=== PATIENT | female | born 2000 | race Caucasian/White ===

== ENCOUNTER 2019-07-03 02:24 | Inpatient (IN) ==
[2019-07-03] MEDS ORDERED: RINGER'S SOLUTION,LACTATED 1,000 ML IV ONE (02:56)
[2019-07-03] MEDS ORDERED: RINGER'S SOLUTION,LACTATED 1,000 ML IV PRN (02:56)
[2019-07-03] MEDS ORDERED: LIDOCAINE HCL 50 ML VIAL PERI PRN (02:56)
[2019-07-03] MEDS ORDERED: OXYTOCIN/DEXTROSE 5%-WATER 30 UNITS/500 ML BAG IV ONE ×2 (02:56→08:53)
[2019-07-03] MEDS ORDERED: PENICILLIN G POTASSIUM 5 MILLIONUNT in DEXTROSE 5 % IN WATER 100 ML IV ONE ×2 (02:56)
[2019-07-03] MEDS ORDERED: ONDANSETRON 4 MG TAB.RAPDIS PO PRN (02:56)
[2019-07-03] MEDS ORDERED: NALOXONE HCL 1 MG/1 ML SYRG IV PRN (02:59)
[2019-07-03] MEDS ORDERED: BUPIVACAINE HCL/0.9 % NACL/PF 250 ML EP PRN (02:59)
[2019-07-03] MEDS ORDERED: ONDANSETRON HCL/PF 2 MG/ML VIAL IV PRN (02:59)
[2019-07-03] MEDS ORDERED: fentaNYL CITRATE/PF 50 MCG/ML AMPUL IT SCH (03:00)
[2019-07-03 03:31] LABS: Cocaine Ur Negative (NEGATIVE); Urine Barbiturate Negative (NEGATIVE); Urine Benzodiazepines Negative (NEGATIVE); Urine Opiates Negative (NEGATIVE); Urine PCP Negative (NEGATIVE); Urine THC Positive (NEGATIVE)
--- NOTE | 2019-07-03 04:10 | ANES ---
Post Anesthesia Discharge - Transfer of Care Transfer of Care handoff given to nurse: Yes - Anesthesia Post Op Note Anesthesia Post Op Note: care transferred to OB RN
--- NOTE | 2019-07-03 04:10 | ANES ---
Anesthesia Pre Procedure Eval Vitals/Labs: Last Vital Signs Temp 37.0 C 07/03/19 02:56 Pulse 63 07/03/19 02:56 Resp 18 07/03/19 02:56 BP 131/77 07/03/19 02:56 Pulse Ox 98 07/03/19 02:56 HOME MEDICATIONS prenat.vits,jose,jie-[id number] 1 tab PO DAILY 04/29/19 [Last Taken Unknown] ferrous sulfate 325 mg (65 mg iron) tablet 325 mg PO BID #60 tab 05/11/19 [Last Taken Unknown] Allergies/Adverse Reactions: Allergies Allergy/AdvReac Type Severity Reaction Status Date / Time No Known Allergies Allergy Verified 07/03/19 03:00 - Planned Procedure Planned Procedure: labor Medical History (Last Reviewed 07/03/19 @ 04:09 by Misha Jones CRNA) Anemia Onset Date: 05/11/19 w/ Body piercing Onset Date: Unknown Scoliosis Onset Date: Unknown Tattoos Onset Date: Unknown Wears glasses Onset Date: Unknown Mononucleosis Onset Date: ~2013 Surgical History (Last Reviewed 07/03/19 @ 04:09 by Misha Jones CRNA) [place] teeth extracted Onset Date: Unknown Family History (Last Reviewed 07/03/19 @ 04:09 by Misha Jones CRNA) Brother Leukemia Mother Alive and well Father Cataracts, bilateral - Family Anesthesia History Family History:: no untoward family reactions to anesthesia - Airway/Neck/Teeth Within Normal Limits:: Yes Teeth Condition: intact Neck Exam: full range of motion Mallampatti Score: 2 Thyromental (T-M) distance: > 6 cm Mandibulo Hyoid distance: > 3 cm - Respiratory Respiratory Physical: lungs clear Smoking Status: Never smoker Sleep Apnea currently treated: No Sleep Apnea by current assessment: No - Cardiovascular Tolerate Activity: Good Heart Sounds: S1 & S2 - Gastrointestinal NPO since: 0 - Anesthesia Assessment and Plan ASA Class: PS, II, E Anesthesia Type Plan: Epidural Planned difficult intubation/equipment available: No
--- NOTE | 2019-07-03 04:11 | ANES ---
Post Anesthesia Assessment - Vital Signs Vitals: Last Vital Signs Temp 37.0 C 07/03/19 02:56 Pulse 63 07/03/19 02:56 Resp 18 07/03/19 02:56 BP 131/77 07/03/19 02:56 Pulse Ox 98 07/03/19 02:56 Airway Patency: Normal - Mental Status Level Of Consciousness: Awake - Pain Level Pain Score: 2 - N/V Assessment Nausea/Vomiting Presence: None Dehydration:: No
--- NOTE | 2019-07-03 04:12 | ANES ---
Anesthesia Procedure Note Procedure Note: ANESTHESIA PROCEDURE NOTE Date of Procedure: 07/03/2019 Time of procedure: . Performed by: Delano Jones CRNA Manager Technical Services: None. Preprocedure diagnosis: Active labor. Post procedure diagnosis: Same. Procedure: Insertion of labor epidural. Indications: The patient is a 18-year-old prima para female in active labor requesting labor epidural for pain management. Findings: See below. Details of the procedure: The patient was placed in a sitting position. Back was prepped with DuraPrep. Patient was then draped in a sterile fashion. Lidocaine 1% was infiltrated to the skin and subcutaneous tissues at the level of the L3 4 interspace. The epidural space was identified using a 18-gauge Tuohy needle with adlu-ch-resqjtetjt technique. 20 mcg fentanyl was given intrathecally using a 27 ga. spinal needle. Epidural catheter was inserted without difficulty. Negative test dose was elicited using 5 mL of 1.5% preservative-free lidocaine plus epinephrine 1 200,000. The epidural catheter was then taped and secured in place. EBL: Minimal. Fluids: N/A. Specimen: N/A. Post procedure condition: The patient tolerated the procedure well. No complications were noted. Thank you for this consultation. Mar CRNA
[2019-07-03] MEDS ORDERED: PENICILLIN G POTASSIUM 2.5 MILLIONUNT in DEXTROSE 5 % IN WATER 100 ML IV SCH ×2 (07:15)
--- NOTE | 2019-07-03 08:15 | HP ---
Chief Complaint - Chief Complaint Date of Service: 07/03/19 Time of Service: 08:13 Chief Complaint: LOF History of Present Illness: 18 yo at 39 wks presents to L&D complaining of LOF since around 0120 this am. She states she has been having lower abdominal pain/contractions since the night before. Denies N/V/F/D. This complicated by anemia, smoker, THC use. Rh positive Rubella immune GBS positive. Medical History (Last Reviewed 07/03/19 @ 15:36 by Blair Traylor DO) Anemia Onset Date: 05/11/19 w/ Body piercing Onset Date: Unknown Scoliosis Onset Date: Unknown Tattoos Onset Date: Unknown Wears glasses Onset Date: Unknown Mononucleosis Onset Date: ~2013 Surgical History: Surgical History (Last Reviewed 07/03/19 @ 15:36 by Blair Traylor DO) [place] teeth extracted Onset Date: Unknown Family History: Family History (Last Reviewed 07/03/19 @ 15:36 by Blair Traylor DO) Brother Leukemia Mother Alive and well Father Cataracts, bilateral Social History: (Last Reviewed 07/03/19 @ 15:36 by Blair Traylor DO) Social History: adopted: Yes mcc: No Marital status: Single household members: friend(s) number of children: 0 current occupational status: unemployed current occupational exposures/hazards: No Highest education level completed: high school graduate Sexually Active: Yes Service: No Tobacco: Smoking Status: Never smoker Alcohol: alcohol intake: former Substance Use: substance use type: marijuana, former substance user Dietary Habits: caffeine: No Exercise: frequency: does not exercise Ashanti/Mosque: agree to transfusion: Yes Review Of Systems (GEN) - Review of Systems Generalized/Overall Review: Present: No Symptoms Reported EENTM: Present: No Symptoms Reported Respiratory: Present: No Symptoms Reported Cardiac: Present: No Symptoms Reported Abdominal: Present: Other - contractions Genitourinary: Present: Other - LOF since 0120 Musculoskeletal: Present: No Symptoms Reported Neurological: Present: No Symptoms Reported Skin: Present: No Symptoms Reported Endocrine: Present: No Symptoms Reported Allergies/Adverse Reactions: Allergies Allergy/AdvReac Type Severity Reaction Status Date / Time No Known Allergies Allergy Verified 07/03/19 03:00 Home Medications: HOME MEDICATIONS prenat.vits,jose,hjk-bbbz-burre 1 tab PO DAILY 04/29/19 [Last Taken Unknown] ferrous sulfate 325 mg (65 mg iron) tablet 325 mg PO BID #60 tab 05/11/19 [Last Taken Unknown] Exam - Exam Vital Signs: Vital Signs - Last Taken Temp 37.0 C 07/03/19 02:56 Pulse 63 07/03/19 02:56 Resp 18 07/03/19 02:56 BP 131/77 07/03/19 02:56 Pulse Ox 98 07/03/19 02:56 Constitutional: Present: Alert, Oriented x3, Cooperative ENT Exam: Present: hearing grossly normal Neck: Present: non-tender. Absent: thyromegaly Back Exam: Present: no CVA tenderness Breasts: Present: Exam deferred Respiratory: Present: lungs clear, no respiratory distress Cardiovascular/Chest: Present: normal peripheral pulses, regular rate, rhythm, no edema Abdomen: Present: soft, no rebound tenderness, other - gravid /Rectal: Present: Other - cervix - 2/70/-1, light to moderate meconium stained fluid Extremity: Present: no pedal edema, no calf tenderness Skin Exam: Present: normal color, warm/dry, no cyanosis Neurologic: Present: alert, normal mood/affect, oriented x 3 Appearance: Present: appropriate appearance, appropriate insight Eye contact: Present: cooperative, good eye contact Thoughts: Present: normal thought pattern Diagnostic Studies: Abnormal Lab Results 07/03/19 Range/Units 03:20 Urine Marijuana (THC) Positive H (NEGATIVE) Laboratory Results Urine Opiates Screen Negative (NEGATIVE) 07/03/19 03:20 Barbiturate Screen Negative (NEGATIVE) 07/03/19 03:20 Ur Phencyclidine Scrn Negative (NEGATIVE) 07/03/19 03:20 Urine Amphetamine Negative (NEGATIVE) 07/03/19 03:20 U Benzodiazepines Scrn Negative (NEGATIVE) 07/03/19 03:20 Urine Cocaine Screen Negative (NEGATIVE) 07/03/19 03:20 Urine Marijuana (THC) Positive (NEGATIVE) H 07/03/19 03:20 Blood Type O Positive 07/03/19 03:05 Antibody Screen Negative 07/03/19 03:05 Assessment/Plan - Assessment/Plan (1) SROM (spontaneous rupture of membranes) Assessment: Admit for labor. PCN per GBS prophylactic protocol. Epidural PRN. Problem: Acute (2) Labor established Problem: Acute (3) GBS (group B Streptococcus carrier), +RV culture, currently Problem: Acute (4) Anemia Problem: Acute Qualifiers: Anemia type: iron deficiency Iron deficiency anemia type: inadequate dietary iron intake Qualified Code(s): D50.8 - Other iron deficiency anemias (5) Meconium in amniotic fluid Problem: Acute
--- NOTE | 2019-07-03 08:45 | OR ---
Operative Report - Dictated Report Narrative: Spontaneous vaginal delivery of vigorously crying viable male at 0821 with Apgars 9 and 9, weighing 3081g in FENG position with left hand at face. Cord clamping delayed approximately 1 minute Placenta delivered complete, intact, with three vessel cord Estimated blood loss: 100 mL Anesthesia: Epidural Lacerations: First-degree vaginal laceration (2 cm) repaired with 3-0 Vicryl Rapide History for MU History for Definition: * The number of deliveries resulting in a live the patient experienced prior to current hospitalization * The previous delivery of live twins or any live multiple gestation is considered one live event. *If primagravida or nulliparous is documented select zero for the number of previous live births. Live Events: Live Events: 1
[2019-07-03] MEDS ORDERED: IBUPROFEN 800 MG TABLET PO PRN (08:53)
[2019-07-03] MEDS ORDERED: BENZOCAINE/MENTHOL 81 SPRAY CAN TP PRN (08:53)
[2019-07-03] MEDS ORDERED: SENNOSIDES 8.6 MG TABLET PO PRN (08:53)
[2019-07-03] MEDS ORDERED: HYDROCORTISONE 30 APPL TUBE TP PRN (08:53)
[2019-07-03] MEDS ORDERED: GLYCERIN/WITCH HAZEL LEAF 40 APPL BOX TP PRN (08:53)
[2019-07-03] MEDS ORDERED: BISACODYL 10 MG SUPP.RECT RC PRN (08:53)
[2019-07-03] MEDS ORDERED: NON-FORMULARY 1 DOSE DOSE (Ferrous Sulfate [Iron] 325 MG) PO SCH (09:00)
[2019-07-03] MEDS: DOCUSATE SODIUM 100 MG CAPSULE PO SCH ×2 (09:33→21:18)
[2019-07-03] MEDS: IBUPROFEN 800 MG TABLET PO PRN ×2 (09:33→16:33)
[2019-07-03] MEDS: PRENATAL VITS96/IRON FUM/FOLIC 1 TAB TABLET PO SCH (09:33)
[2019-07-03] MEDS: FERROUS SULFATE 325 MG TABLET PO SCH ×2 (09:33→21:18)
[2019-07-03] MEDS: oxyCODONE HCL/ACETAMINOPHEN 1 TAB TABLET PO PRN ×2 (09:34→17:16)
[2019-07-03] MEDS ORDERED: MISOPROSTOL 200 MCG TABLET PO ONE (16:15)
[2019-07-03] MEDS ORDERED: MISOPROSTOL 100 MCG TABLET PO ONE (16:30)
[2019-07-04] MEDS: DOCUSATE SODIUM 100 MG CAPSULE PO SCH ×2 (08:03→22:22)
[2019-07-04] MEDS: IBUPROFEN 800 MG TABLET PO PRN ×2 (08:03→17:50)
[2019-07-04] MEDS: FERROUS SULFATE 325 MG TABLET PO SCH ×2 (08:03→22:22)
[2019-07-04] MEDS: PRENATAL VITS96/IRON FUM/FOLIC 1 TAB TABLET PO SCH (08:03)
[2019-07-04] MEDS: oxyCODONE HCL/ACETAMINOPHEN 1 TAB TABLET PO PRN ×2 (12:50→17:49)
--- NOTE | 2019-07-04 13:13 | PN ---
Subjective - Date and Time Seen Date: 07/04/19 Time: 13:10 Objective - Vitals Vitals: Last Vital Signs Temp 37 C 07/04/19 08:10 Pulse 74 07/04/19 08:10 Resp 16 07/04/19 08:10 BP 135/86 07/04/19 08:10 Pulse Ox 100 07/04/19 08:10 Patient denies complaints. Bottlefeeding. Lochia wnl abdomen - soft, nontender Uterus -firm, at umbilicus - 1 no calf tenderness Impression: day #1 - s/p spontaneous vaginal delivery. Plan: Continue routine care Cauti Physician Documentation - Urinary Catheter Management Urethral (Alex) Date of Insertion: 07/03/19 Time of Insertion: 04:20 Date of Removal: 07/03/19 Time of Removal: 08:11 Assessment/Plan - Problems/Diagnosis (1) SROM (spontaneous rupture of membranes) Problem: Acute (2) Labor established Problem: Acute (3) GBS (group B Streptococcus carrier), +RV culture, currently Problem: Acute (4) Anemia Problem: Acute Qualifiers: Anemia type: iron deficiency Iron deficiency anemia type: inadequate tary iron intake Qualified Code(s): D50.8 - Other iron deficiency anemias (5) Meconium in amniotic fluid Problem: Acute
[2019-07-05 07:29] VITALS: BP 133/95
[2019-07-05] MEDS: PRENATAL VITS96/IRON FUM/FOLIC 1 TAB TABLET PO SCH (09:18)
[2019-07-05] MEDS: IBUPROFEN 800 MG TABLET PO PRN (09:18)
[2019-07-05] MEDS: FERROUS SULFATE 325 MG TABLET PO SCH (09:18)
[2019-07-05] MEDS: DOCUSATE SODIUM 100 MG CAPSULE PO SCH (09:18)
--- NOTE | 2019-07-05 11:41 | PN ---
Subjective - Date and Time Seen Date: 07/05/19 Time: 11:40 Objective - Vitals Vitals: Last Vital Signs Temp 37.5 C 07/05/19 07:00 Pulse 92 07/05/19 07:00 Resp 16 07/05/19 07:00 BP 133/95 H 07/05/19 07:00 Pulse Ox 99 07/05/19 07:00 Patient denies complaints. Breast-feeding. 1 elevated blood pressure with all the rest normal Lochia wnl abdomen - soft, nontender Uterus -firm, at umbilicus - 2 no calf tenderness Impression: day #2 - s/p spontaneous vaginal delivery. Plan: Routine discharge instructions. Preeclampsia precautions. Cauti Physician Documentation - Urinary Catheter Management Urethral (Alex) Date of Insertion: 07/03/19 Time of Insertion: 04: Date of Removal: 07/03/19 Time of Removal: 08:11 Assessment/Plan - Problems/Diagnosis (1) SROM (spontaneous rupture of membranes) Problem: Acute (2) Labor established Problem: Acute (3) GBS (group B Streptococcus carrier), +RV culture, currently Problem: Acute (4) Anemia Problem: Acute Qualifiers: Anemia type: iron deficiency Iron deficiency anemia type: inadequate dietary iron intake Qualified Code(s): D50.8 - Other iron deficiency anemias (5) Meconium in amniotic fluid Problem: Acute
== END 2019-07-05 13:00 | disposition home or self-care (01) | DRG 806 ==
LOC: OBCLINIC 02:24 → OB 02:44
PROVIDERS: ADMIT Obstetrics & Gynecology; ATTEND Obstetrics & Gynecology
CPT/HCPCS: 59025; 80307; 86850; 88307; 88888